=== PATIENT | male | born 1955 | race African-American/Black ===

== ENCOUNTER 2020-09-30 15:59 | Inpatient (IN) | payer MEDICARE, MEDICAID ==
[~2020-09-30] VITALS: Ht 172.7 cm; Wt 59.0 kg
[~2020-09-30 15:59] MED LIST: ALBU2.5V13 NEB; FLUT1DIS3 INH; P50 MT; PROM25TA13 MT
[2020-09-30 17:28] LABS: BASOPHILS % 0.6 % (0.0-2.0); EOSINOPHILS % 8.1 % (0.0-5.0); HEMATOCRIT. 42.4 % (42.0-52.0); HEMOGLOBIN. 14.3 g/dL (14.0-18.0); LYMPHOCYTES % 35.9 % (20.0-50.0); MEAN CORPUSCULAR HEMOGLOBIN 32.3 pg (28.0-32.0); MEAN CORPUSCULAR VOLUME 95.8 fL (80.0-94.0); MEAN PLATELET VOLUME 6.9 fl (7.4-10.4); MONOCYTES % 10.7 % (2.0-8.0); NEUTROPHILS % 44.7 % (40.0-76.0); PLATELET 373 x1000/uL (130-400); RED BLOOD CELL COUNT 4.42 mill/uL (4.7-6.1); RED CELL DISTRIBUTION WIDTH 15.2 % (11.6-14.6)
[2020-09-30 17:34] LABS: CHLORIDE 104 mEq/L (98-107)
[2020-09-30] MEDS ORDERED: MORPHINE SULFATE 4 MG/ML CPJ (NOT FOR IM USE) IV ONE (20:45)
[2020-10-01] MEDS: MORPHINE SULFATE 2 MG/ML CPJ (NOT FOR IM USE) IV PRN ×2 (10:11→15:41)
[2020-10-01] MEDS ORDERED: CLONIDINE 0.1MG TABLET PO PRN (10:30)
[2020-10-01] MEDS ORDERED: IPRATROPIUM/ALBUTEROL 0.5-3(2.5)MG/3ML NEB HHN PRN (10:30)
[2020-10-01] MEDS ORDERED: ONDANSETRON HCL 4MG/2ML INJ IV PRN (10:30)
[2020-10-01] MEDS ORDERED: ACETAMINOPHEN 325MG TABLET PO PRN (10:30)
[2020-10-01 10:45] VITALS: BP 166/92
[2020-10-01] MEDS ORDERED: TOPUD PO (11:40)
[2020-10-01 12:00] VITALS: BP 166/92
[2020-10-01 16:00] VITALS: BP 160/93
[2020-10-01] MEDS: THIAMINE HCL 100MG TABLET PO SCH (17:37)
[2020-10-01] MEDS: AMLODIPINE 10MG TABLET PO SCH (17:37)
[2020-10-01 19:52] LABS: *AMPHETAMINES SCREEN URINE NEGATIVE (NEGATIVE); *BARBITURATES SCREEN URINE NEGATIVE (NEGATIVE); *BENZODIAZEPINES SCREEN URINE NEGATIVE (NEGATIVE)
[2020-10-01 19:54] LABS: *COCAINE SCREEN URINE PRESUMTIVE POSITIVE (NEGATIVE); CANNABINOID URINE SCREEN NEGATIVE (NEGATIVE); METHADONE URINE SCREEN NEGATIVE (NEGATIVE); OPIATES URINE SCREEN PRESUMTIVE POSITIVE (NEGATIVE); PHENCYCLIDINE URINE SCREEN NEGATIVE (NEGATIVE)
[2020-10-01 20:00] VITALS: BP 146/83
[2020-10-02] VITALS: BP_SYST 127; BP_SYST 140; BP_DIAS 80; BP_DIAS 87
[2020-10-02 04:00] VITALS: BP 136/75
[2020-10-02 08:00] VITALS: BP 134/80
[2020-10-02] MEDS: THIAMINE HCL 100MG TABLET PO SCH (08:54)
[2020-10-02] MEDS: AMLODIPINE 10MG TABLET PO SCH (08:54)
[2020-10-02] MEDS: MORPHINE SULFATE 2 MG/ML CPJ (NOT FOR IM USE) IV PRN (08:55)
[2020-10-02 12:00] VITALS: BP 114/72
[2020-10-02 16:00] VITALS: BP 120/75
[2020-10-02 20:00] VITALS: BP 125/83
[2020-10-03] MEDS: MORPHINE SULFATE 2 MG/ML CPJ (NOT FOR IM USE) IV PRN (01:18)
[2020-10-03 04:00] VITALS: BP 147/75
[2020-10-03] MEDS: AMLODIPINE 10MG TABLET PO SCH (09:09)
[2020-10-03] MEDS: THIAMINE HCL 100MG TABLET PO SCH (09:09)
[2020-10-03] MEDS: HYDROCODONE/ACETAMINOPHEN 5/325MG TABLET PO PRN (11:45)
[2020-10-03 20:00] VITALS: BP 120/78
[2020-10-03] MEDS: GUAIFENESIN 600MG ER TABLET PO SCH (21:45)
[2020-10-04] VITALS: BP 120/83
[2020-10-04 04:00] VITALS: BP 122/82
[2020-10-04 08:00] VITALS: BP 117/87
[2020-10-04] MEDS: THIAMINE HCL 100MG TABLET PO SCH (08:39)
[2020-10-04] MEDS: AMLODIPINE 10MG TABLET PO SCH (08:39)
[2020-10-04] MEDS: GUAIFENESIN 600MG ER TABLET PO SCH (08:40)
[2020-10-04] MEDS: HYDROCODONE/ACETAMINOPHEN 5/325MG TABLET PO PRN ×2 (08:42→13:33)
[2020-10-04 12:00] VITALS: BP 100/83
[2020-10-04 13:04] VITALS: BP 100/62
[2020-10-04 13:33] VITALS: BP 100/62
== END 2020-10-04 15:05 | DRG 342 ==
LOC: ER 15:59 → 6EST 20:53 → EDBEDREQ 21:31 → EDBEDREQTM 21:31 → ENRESERV 10-01 09:46
PROVIDERS: ADMIT Internal Medicine; ATTEND Internal Medicine
PROC: 2W3RX1Z Immobilization of Left Lower Leg using Splint (ICD-10-PCS; principal; 2020-09-30)
DX: S82.65XA Nondisplaced fracture of lateral malleolus of left fibula, initial encounter for closed fracture (principal); S82.55XA Nondisplaced fracture of medial malleolus of left tibia, initial encounter for closed fracture; M94.0 Chondrocostal junction syndrome [Tietze]; S82.892A Other fracture of left lower leg, initial encounter for closed fracture; E44.1 Mild protein-calorie malnutrition; I10 Essential (primary) hypertension; J44.9 Chronic obstructive pulmonary disease, unspecified; F10.10 Alcohol abuse, uncomplicated; F14.90 Cocaine use, unspecified, uncomplicated; F17.210 Nicotine dependence, cigarettes, uncomplicated; Z20.822 Contact with and (suspected) exposure to COVID-19; Y90.9 Presence of alcohol in blood, level not specified; Z88.0 Allergy status to penicillin; Z79.899 Other long term (current) drug therapy; Z79.1 Long term (current) use of non-steroidal anti-inflammatories (NSAID); Z68.1 Body mass index [BMI] 19.9 or less, adult; Z71.41 Alcohol abuse counseling and surveillance of alcoholic; Z71.6 Tobacco abuse counseling; Z79.51 Long term (current) use of inhaled steroids; V09.9XXA Pedestrian injured in unspecified transport accident, initial encounter; Y93.89 Activity, other specified; Y92.89 Other specified places as the place of occurrence of the external cause; Y99.8 Other external cause status
CPT/HCPCS: 36415; 71045; 71250; 73562; 73590; 73610; 80053; 80305; 83880; 84484; 85025; 87426; 93005; 93306; 97110; 97116; 97162; 97166; 97535; 99285; J2270; L1830